=== PATIENT | male | born 1990 | race African-American/Black ===

== ENCOUNTER 2017-08-22 06:56 | Day surgery (SDC) | payer OTHER, SELFPAY ==
[2017-08-19 12:08] VITALS: BMI 30.8
[2017-08-22] VITALS (12 sets, daily range): BP systolic 95–142; BP diastolic 53–91; PULSE 66–100; RESP 14–20; TEMP 36–36.4; O2SAT 95–100; BMI 32.5
--- NOTE | 2017-08-22 09:18 | PM.PREOP ---
Pre-operative Note Interval Note Pre-op Check: History & Physical Reviewed by Physician and Exam Performed H&P completed within 30 days and has changed as indicated here:: No Changes.
[2017-08-22] MEDS: LACTATED RINGERS 1,000 ML 42 ML IV (09:21)
--- NOTE | 2017-08-22 10:44 | SUR.OPER ---
Supine on padded OR bed, head on pillow, arms secured on padded arm boards at <90 degrees abduction, legs uncrossed, safety belt at waist, tape over blanket over left6 leg. lateral leg brace on right side of table
[2017-08-22] MEDS: ROPIVACAINE 0.5% PF 5 MG/ML 20ML AMP 10 ML INJ (11:09)
[2017-08-22] MEDS: MORPHINE-PF 10 MG/10 ML INJ INTRA-ARTI (11:11)
[2017-08-22] MEDS: EPINEPHrine 1 MG/ML AMPUL IRR (11:13)
--- NOTE | 2017-08-22 11:13 | PM.OP.1 ---
Operative Date/Time/Diagnoses Date of procedure: 08/22/17 Time of procedure: 10:00 Pre-op diagnosis: Right knee adhesions Post-op diagnosis: other (Right knee adhesions, lateral meniscus edge fraying, lateral tibial plateau chondromalacia.) Procedure & Clinicians Procedure: 1. Right knee arthroscopy with lateral meniscus debridement and lateral tibial plateau chondroplasty. 2. Right knee arthroscopy with lysis of adhesions. Same procedure as scheduled: Yes Indications: This is a 27-year-old male who underwent a right knee arthroscopic assisted anterior cruciate ligament reconstruction with hybrid graft consisting of hamstring autograft and tibialis anterior allograft in February of 2016. He continued to have difficulty postoperatively with intermittent swelling, persistent pain, mechanical symptoms, and knee stiffness. An MRI was obtained that showed his ACL graft to be intact and no significant intra-articular derangement. Despite activity modification, bracing, nonsteroidal anti-inflammatories, corticosteroid injection and extensive physical therapy the patient continued to have symptoms. The risks, benefits, indications and expectations of treatment options were discussed with the patient. The risks of surgery to include but not limited to infection, bleeding, damage to neurovascular structures, persistent or worsening pain, need for additional surgery, iatrogenic chondromalacia, iatrogenic fracture, deep vein thrombosis, pulmonary embolism, loss of limb and loss of life were discussed with the patient. All questions were answered, the patient elected to proceed with surgery and informed consent was obtained. Surgeon: Belle Del Valle Hand Cloth Cutter: Clyde Dhillon Anesthesia Type: General (LMA) and Local (10 mg of Duramorph and 10 mg of 0.2pivacaine without epinephrine intra-articularly.) Operative Notes Findings: 1. ACL graft intact with mild anterior fraying. 2. Fraying of the edge of the body of the lateral meniscus. 3. 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 4. Small amount of adhesions in the medial and suprapatellar compartments. Closure Type: primary Specimen(s): none sent Implants & Drains: None. Estimated Blood Loss (mL): 1 Blood products transfused: none Tourniquet time (min): 0 Procedure in detail: The patient was met in the preoperative hold area on the morning of surgery were reconfirmed with the correct patient, we will plan to do the correct procedure and had the correct extremity which was the right lower extremity identified. Prior to the patient receiving any medications the operative extremity was initialed by the surgeon. The patient was then brought back to the operating room in stable condition and placed supine on the operating room table. All bony prominences were well padded and sequential compression device was placed on the nonoperative leg. General anesthesia was induced without complication and an LMA was placed. The right lower extremity was then examined under anesthesia and found to have range of motion from 0-135 degrees without any resistance. He had a 2A Markus's, negative posterior drawer and was stable to varus and valgus at both 0 and 30?. He had no pivot shift, and minimal glide. The right lower extremity was then prepped and draped in usual sterile fashion. After final draping additional ChloraPrep was utilized on the operative site and 3 min were allowed to lapse to enable ChloraPrep to dry. We have a surgical time-out we confirmed that we had the correct patient, we will plan to do the correct procedure and had the correct extremity identified. We also confirmed the patient received preoperative antibiotics, that all necessary care was in the room confirmed sterile eye that no members of the operative team had any concerns. I began by making a standard anterior lateral portal by 1st sharply incising the skin with a #11 blade and then introducing the trocar with a blunt introducer into the patellofemoral joint. I then inserted my camera and began my examination. There were some adhesions in the suprapatellar and medial regions of the knee. There is some mild grade 1 chondromalacia of the trochlea. There were no loose bodies in the lateral gutter. I then continued my exam to the medial compartment where under direct visualization and made a standard anterior medial portal by 1st localizing with a 18 gauge needle and then incising the skin and introducing the blunt introducer. I then introduced the probe and continue my examination. There is some mild grade 1 chondromalacia of the medial tibial plateau. The medial meniscus was intact there were no significant lesions of the medial femoral condyle. I then continued my exam into the notch. The ACL graft was noted to be largely intact though there was some fraying of the anterior fibers which was debrided. The ACL was adequately taut. The PCL was intact. A nicotine examined the lateral compartment where a loose flap of partial-thickness cartilage was noted in the anterior medial aspect of the lateral tibial plateau. There is diffuse softening of the cartilage throughout the lateral tibial plateau. The lateral femoral condyle was without significant lesion. The body of the lateral meniscus had some fraying on the edge but no corby tearing. I debrided both the cartilage flap as well as the edge of the meniscus. I then debrided any of the adhesions. A SERFAS Wand was utilized to ensure hemostasis. All arthroscopic equipment was then removed from the knee. The portals were closed utilizing 3-0 Biosyn in a buried fashion. Mastisol and Steri-Strips were then placed over the incisions. I then injected 10 mg of Duramorph and 10 mg of 0.2% ropivacaine without epinephrine intra-articularly for postoperative analgesia. The wounds were then dressed with sterile Xeroform, plain gauze and an ABD. A Bayron hose was then placed over this. All sponge counts and needle counts were correct at the conclusion of the case. The patient was taken to the PACU in stable condition after being woken from general anesthesia. Complications: none Condition: stable Disposition: PACU Plan for aftercare: Patient will be discharged home same day of surgery. He may weightbear as tolerated on his right lower extremity. He may range his right knee as tolerated. I will see the patient back in 10-14 days for wound check. He is to start physical therapy within 1 week of surgery.
[2017-08-22] MEDS: fentaNYL 100 MCG/2 ML INJ 50 MCG IV ×2 (11:17→11:27)
[2017-08-22] MEDS: OXYCODONE/ACETAMINOPHEN 5/325 TABLET 1 TAB PO ×2 (12:02→12:31)
== END 2017-08-22 12:45 | disposition home or self-care (01) ==
PROVIDERS: Visit Provider Orthopaedic Surgery
PROC: (CPT 29870; principal; 2017-08-22 09:15)
PROC: (CPT 29888; 2017-08-22 09:15)
DX: M23.8X1 Other internal derangements of right knee (principal); M94.261 Chondromalacia, right knee; M23.300 Other meniscus derangements, unspecified lateral meniscus, right knee; E66.9 Obesity, unspecified; G47.33 Obstructive sleep apnea (adult) (pediatric)
CPT/HCPCS: 29881; 93005; J0171; J1100; J2250; J2274; J2405; J2704; J2795; J3010